=== PATIENT | male | born 1980 | race Caucasian/White ===

== ENCOUNTER 2017-03-01 11:53 | Emergency (ER) | payer OTHER ==
--- NOTE | 2017-03-01 12:27 | ERNOTE ---
Medical Problem HPI - General Chief Complaint: Nausea/Vomiting Time Seen by Provider: 03/01/17 12:19 Source: patient Exam Limitations: no limitations - Immun/Allergies/Home Medications Allergies/Adverse Reactions: Allergies No Known Allergies Allergy (Verified 03/01/17 12:03) Home Medications: HOME MEDICATIONS Flaxseed Oil [Flax Seed Oil] 1,000 mg PO DAILY 12/05/13 [Last Taken 12/05/13] Aspirin [Aspirin EC] 325 mg PO DAILY 03/01/17 [Last Taken Unknown] Ciprofloxacin HCl [Cipro] 500 mg PO BID #20 tab 03/01/17 [Last Taken Unknown] Omeprazole 40 mg PO DAILY 03/01/17 [Last Taken Unknown] - History of Present History Narrative: Patient ate chicken two days ago. It seemed to have a weird aftertaste and a few hours later he started to have vomiting and diarrhea. Last vomiting was yesterday morning, he has tolerated water and bread since. He only has lower abdominal cramping prior to having diarrhea but still has watery BM at least once an hour, no sick contacts Date (Duration): 02/27/17 Review of Systems - Review of Systems Constitutional: Absent: recent illness, fever ENT: Absent: nose congestion, sore throat Respiratory: Absent: shortness of breath, cough Cardiology: Absent: chest pain, palpitations Gastrointestinal/Abdominal: Present: See HPI, nausea, vomiting, diarrhea, abdominal pain Genitourinary: Present: decreased urinary output. Absent: frequency, dysuria Musculoskeletal: Absent: back pain Skin: Absent: rash Neurological: Absent: headache Psych: Present: no symptoms reported - Patient's Past Medical History Patient History - Medical: GERD Patient History - Cardiac/Respiratory: Hypertension Patient History - Cancer: No Hx of Cancer Patient History - Other: None - Social History Living Situations: home Psych History: No pertinent hx Alcohol Use: none Drug Use: none Physical Exam - Physical Exam General Appearance: Present: wd/wn, alert, no apparent distress Ears, Nose, Throat: Present: normal pharynx Respiratory: Present: no respiratory distress, normal breath sounds, no accessory muscle use, lungs clear Cardiovascular/Chest: Present: regular rate, rhythm, no murmur Gastrointestinal/Abdominal: Present: normal bowel sounds, nontender, nondistended, soft Back Exam: Present: no CVA tenderness Extremity Exam: Present: no edema Neurological Exam: Present: alert, oriented, normal mood/affect Skin Exam: Present: normal color, warm/dry ED Progress - Results and Orders Patient's Lab Results:: I have reviewed the patient's lab results. - Vital Signs Patient's Vital Signs:: I have reviewed the patient's vital signs. Vital Signs: Vital Signs 03/01/17 11:59 Temperature 36.4 C L Pulse Rate 114 H Respiratory 12 Rate Blood Pressure 144/89 O2 Sat by Pulse 100 Oximetry - X-Ray X-Ray #1 X-Ray: abdomen - non specfic bowl gas pattern Interpretation: Reviewed by me - Progress/Reassessment Chief Complaint: Nausea/Vomiting Progress Note-Subjective: 03/01/17 14:22 patient had four BM while here discussed test results and plan, as patient has quite a few WBC in his stool will treat with antibiotic, discussed diarrhea diet, probiotics and avoiding daily Departure - Departure Clinical Impression: Gastroenteritis Disposition: Home self-care Condition: Good Instructions: Food Choices to Help Relieve Diarrhea, Adult, Diarrhea, Adult, [id number] Additional Instructions: take the antibiotic as instructed use a probiotic drink lots of fluids Referrals: Salas Cooley DO [Staff Physician] - Prescriptions: Ciprofloxacin HCl [Cipro] 500 mg PO BID #20 tab
[2017-03-01 12:46] LABS: Hematocrit 41.5 % (42.0-52.0); Hemoglobin 14.6 gm/dL (13.5-18.0); Mean Cell Volume 89.2 fl (78-100); Mean Corpuscular Hemoglobin 31.4 pg (27-31); Mean Corpuscular Hgb Conc 35.2 g/dl (32-36); Platelet Count 235 K/mm3 (150-450); Red Blood Count 4.65 M/mm3 (4.7-6.0); Red Cell Distribution Width 12.5 % (11.5-14.0); White Blood Count 9.7 K/mm3 (4.0-10.5)
[2017-03-01 12:51] LABS: Total Cells Counted 100
[2017-03-01 12:56] LABS: Urine Bilirubin 1 mg/dl (NEGATIVE); Urine Ketone 15 mg/dL (NEGATIVE); Urine Nitrite Negative (NEGATIVE); Urine Protein Negative (NEGATIVE); Urine Urobilinogen Normal (NORMAL)
[2017-03-01 13:04] LABS: Albumin * 3.7 gm/dl (3.4-5.0); Anion Gap 13.6 mmol/L (6.8-13.8); BUN/Creatinine Ratio 6.3 (9.0-21.6); Bilirubin, Total 0.6 mg/dL (0.0-1.1); Ca. Corrected For Albumin 8.9 mg/dL (8.4-10.2); Carbon Dioxide 26.7 mmol/L (24-32.6); Potassium 3.3 mmol/L (3.4-4.6); Total Protein 7.6 gm/dL (6.2-8.2)
[2017-03-01 13:21] LABS: Atypical (Reactive) Lymph 1 % (0-2); Band 6 % (0-2.0); Lymphocyte 6 % (20-51); Monocyte 1 % (0-9); Neutrophil 86 % (42-75); Neutrophil # 8.3 K/mm3 (1.3-6.0); Platelet Estimate Normal (NORMAL); RBC Morphology Normal (NORMAL)
[2017-03-01 13:25] LABS: Urine Appearance Clear; Urine Bacteria None Seen; Urine Blood 5 /ul (NEGATIVE); Urine Color Yellow; Urine RBC 0-5 /hpf (0-5); Urine WBC None Seen /hpf (0-5)
[2017-03-01 13:37] VITALS: BP 135/80
[2017-03-01 13:43] LABS: Bacteria Moderate; Neutrophil 100 % (42-75); White Blood Count Many
[2017-03-01 13:44] LABS: Yeast None Seen
== END 2017-03-01 14:22 | disposition home or self-care (01) ==
LOC: ER 11:53
DX: K52.9 Noninfective gastroenteritis and colitis, unspecified (principal); K21.9 Gastro-esophageal reflux disease without esophagitis; I10 Essential (primary) hypertension